=== PATIENT | female | born 1995 | race African-American/Black ===

== ENCOUNTER 2017-05-03 16:05 | Emergency (ER) | payer OTHER ==
[2017-05-05 15:31] LABS: CHLAMYDIA PROBE Negative (Negative); GC PROBE Negative (Negative)
== END 2017-05-03 16:42 | disposition home or self-care (01) ==
LOC: ER 16:05
DX: B37.9 Candidiasis, unspecified (principal); Z87.440 Personal history of urinary (tract) infections
CPT/HCPCS: 87491; 87591; 99284; Q0111

== ENCOUNTER 2018-10-26 23:09 | Emergency (ER) | payer MEDICAID, OTHER ==
[~2018-10-26] VITALS: Ht 170.2 cm; Wt 90.7 kg
[~2018-10-26 23:09] MED LIST: FLUC150T PO
[2018-10-26 23:42] LABS: BILIRUBIN,URINE NEGATIVE (NEG); CLARITY,URINE CLEAR; COLOR,URINE YELLOW; NITRITE,URINE NEGATIVE (NEG); PROTEIN,URINE NEGATIVE (NEG-TRACE)
[2018-10-26 23:47] LABS: BACTERIA,URINE 0 /HPF (0-FEW); RBC,URINE OCC /HPF (0-2); SQUAMOUS EPITHELIAL CELL,UR MOD /LPF; WBC,URINE OCC /HPF (0-4)
[2018-10-26 23:56] LABS: BASO # 0.1 x10^3/uL (0.0-0.2); BASO % 1 % (0-3); EOS # 0.1 x10^3/uL (0.0-0.7); EOS % 2 % (0-3); HEMATOCRIT 34.3 % (36.0-47.0); HEMOGLOBIN 11.1 g/dL (12.0-15.5); LYMPH # 2.9 x10^3/uL (1.0-4.8); LYMPH % 31 % (24-48); MEAN CORPUSCULAR HEMOGLOBIN 27 pg (25-35); MEAN CORPUSCULAR HGB CONC 32 g/dL (31-37); MEAN CORPUSCULAR VOLUME 83 fL (79-100); MONO # 0.6 x10^3/uL (0.0-1.1); MONO % 6 % (0-9); NEUT # 5.8 x10^3/uL (1.8-7.7); NEUT % 61 % (31-73); PLATELET COUNT 347 x10^3/uL (140-400); RED BLOOD COUNT 4.13 x10^6/uL (3.50-5.40); RED CELL DISTRIBUTION WIDTH 15.9 % (11.5-14.5); WHITE BLOOD COUNT 9.5 x10^3/uL (4.0-11.0)
[2018-10-27 00:11] LABS: BARBITURATES NEG (NEG); BENZODIAZEPINES NEG (NEG); CANNABINOIDS NEG (NEG); COCAINE NEG (NEG); METHADONE NEG (NEG); OPIATES NEG (NEG); PHENCYCLIDINE NEG (NEG)
[2018-10-27 00:12] LABS: CALCIUM 9.1 mg/dL (8.5-10.1); CREATININE 0.8 mg/dL (0.6-1.0); GFR 109.6; POTASSIUM 3.9 mmol/L (3.5-5.1)
[2018-10-27 00:12] LABS: AMPHETAMINE/METHAMPHETAMINE NEG (NEG)
[2018-10-27 00:14] LABS: ALBUMIN 3.4 g/dL (3.4-5.0); ALBUMIN/GLOBULIN RATIO 0.9 (1.0-1.7); TOTAL BILIRUBIN 0.1 mg/dL (0.2-1.0); TOTAL PROTEIN 7.4 g/dL (6.4-8.2)
[2018-10-27] MEDS ORDERED: MAGNESIUM CITRATE 296 ML SOLUTION. PO ONE (00:30)
--- NOTE | 2018-10-27 00:54 | RAD ---
OB ultrasound less than 14 weeks to include transabdominal and transvaginal imaging 10/27/2018 CLINICAL HISTORY: First trimester of uncertain dates. Vaginal bleeding. TECHNIQUE: Using the distended urinary bladder as a sonographic window, a real-time ultrasound examination of the pelvis was performed. Additionally in an attempt to better evaluate the uterus and adnexa, a transvaginal ultrasound study was performed. Multiple images were obtained. FINDINGS: Comparison study is dated 10/23/2018. The uterus is within normal limits in size. It measures 10.2 x 7.4 x 5.8 cm in longitudinal, transverse, and AP dimensions. The endometrial echo complex is heterogeneous. It measures 1.6 cm in thickness. Fluid is seen within the endometrial canal within the cervical canal. No gestational sac is seen within the uterus. No focal abnormality of the uterus is seen. Both ovaries are within normal limits in size and echogenicity. The right ovary measures 2.7 x 1.9 x 1.8 cm in size. Left ovary measures 2.5 x 2.4 x 1.7 cm in size. No adnexal mass is seen. No free fluid is noted. The ultrasound findings have not significantly changed. IMPRESSION: No IUP is seen. The above ultrasound findings could be seen with a very early IUP, missed spontaneous or possibly due to an occult ectopic . Clinical correlation and correlation with the patient's serial beta hCG levels is recommended. Electronically signed by: Julian Pineda MD (10/27/2018 12:51 AM) [facility]
[2018-10-27 01:00] VITALS: BP 98/53
--- NOTE | 2018-10-27 01:36 | PHYS DOC ---
Past Medical History Past Medical History: UTI Past Surgical History: No Surgical History Alcohol Use: None Drug Use: None Adult General Chief Complaint Chief Complaint: VAGINAL BLEEDING HPI HPI Patient is a 23 year old female 2 para 1 currently approximately 6 weeks presenting to the ED today for vaginal bleeding in that began 3 weeks ago and has been going on slowly since then. She states she was seen at [facility] on Tuesday and her beta hCG was 5000 and was informed she is having a miscarriage. Denies any abdominal pain, denies any back pain, denies any nausea or vomiting. Review of Systems Review of Systems Constitutional: Denies fever or chills [] Eyes: Denies change in visual acuity, redness, or eye pain [] HENT: Denies nasal congestion or sore throat [] Respiratory: Denies cough or shortness of breath [] Cardiovascular: No additional information not addressed in HPI [] GI: Reports vaginal bleeding in . Denies abdominal pain, nausea, vomiting, bloody stools or diarrhea [] : Denies dysuria or hematuria [] Musculoskeletal: Denies back pain or joint pain [] Integument: Denies rash or skin lesions [] Neurologic: Denies headache, focal weakness or sensory changes [] All other systems were reviewed and found to be within normal limits, except as documented in this note. Current Medications Current Medications Current Medications Medications (Trade) Dose Ordered Sig/Serafin Start Time Stop Time Status Last Admin Dose Admin Magnesium Citrate (Citroma) 296 ml 1X ONCE 10/27/18 00:30 10/27/18 00:31 DC 10/27/18 00:36 296 ML Allergies Allergies Allergies Coded Allergies Type Severity Reaction Last Updated Verified No Known Drug Allergies 01/27/16 No Physical Exam Physical Exam Constitutional: Well developed, well nourished, no acute distress, non-toxic appearance. [] HENT: Normocephalic, atraumatic, bilateral external ears normal, oropharynx moist, no oral exudates, nose normal. [] Eyes: PERRLA, EOMI, conjunctiva normal, no discharge. [] Neck: Normal range of motion, no tenderness, supple, no stridor. [] Cardiovascular:Heart rate regular rhythm, no murmur [] Lungs & Thorax: Bilateral breath sounds clear to auscultation [] Abdomen: Bowel sounds normal, soft, no tenderness, no masses, no pulsatile masses. [] Pelvic exam External pelvic is normal, cervix is visualized, small amount of blood in the vaginal vault, no CMT, no adnexal tenderness. Skin: Warm, dry, no erythema, no rash. [] Back: No tenderness, no CVA tenderness. [] Extremities: No tenderness, no cyanosis, no clubbing, ROM intact, no edema. [] Neurologic: Alert and oriented X 3, normal motor function, normal sensory function, no focal deficits noted. [] Psychologic: Affect normal, judgement normal, mood normal. [] Current Patient Data Vital Signs Vital Signs Date Time Temp Pulse Resp B/P (MAP) Pulse Ox O2 Delivery O2 Flow Rate FiO2 10/27/18 01:00 104 22 98/53 (68) 98 Room Air 10/26/18 23:34 98.8 98.8 Lab Values Laboratory Tests Test 10/26/18 23:20 10/26/18 23:38 10/26/18 23:47 Urine Collection Type Unknown Urine Color Yellow Urine Clarity Clear Urine pH 8.0 Urine Specific [place] 1.020 Urine Protein Negative mg/dL (NEG-TRACE) Urine Glucose (UA) Negative mg/dL (NEG) Urine Ketones (Stick) Negative mg/dL (NEG) Urine Blood Negative (NEG) Urine Nitrite Negative (NEG) Urine Bilirubin Negative (NEG) Urine Urobilinogen Dipstick 1.0 mg/dL (0.2 mg/dL) Urine Leukocyte Esterase Negative (NEG) Urine RBC Occ /HPF (0-2) Urine WBC Occ /HPF (0-4) Urine Squamous Epithelial Cells Mod /LPF Urine Bacteria 0 /HPF (0-FEW) Urine Mucus Mod /LPF Urine Opiates Screen Neg (NEG) Urine Methadone Screen Neg (NEG) Urine Barbiturates Neg (NEG) Urine Phencyclidine Screen Neg (NEG) Urine Amphetamine/Methamphetamine Neg (NEG) Urine Benzodiazepines Screen Neg (NEG) Urine Cocaine Screen Neg (NEG) Urine Cannabinoids Screen Neg (NEG) Urine Ethyl Alcohol Neg (NEG) POC Urine HCG, Qualitative Hcg positive (Negative) White Blood Count 9.5 x10^3/uL (4.0-11.0) Red Blood Count 4.13 x10^6/uL (3.50-5.40) Hemoglobin 11.1 g/dL (12.0-15.5) L Hematocrit 34.3 % (36.0-47.0) L Mean Corpuscular Volume 83 fL (79-100) Mean Corpuscular Hemoglobin 27 pg (25-35) Mean Corpuscular Hemoglobin Concent 32 g/dL (31-37) Red Cell Distribution Width 15.9 % (11.5-14.5) H Platelet Count 347 x10^3/uL (140-400) Neutrophils (%) (Auto) 61 % (31-73) Lymphocytes (%) (Auto) 31 % (24-48) Monocytes (%) (Auto) 6 % (0-9) Eosinophils (%) (Auto) 2 % (0-3) Basophils (%) (Auto) 1 % (0-3) Neutrophils # (Auto) 5.8 x10^3/uL (1.8-7.7) Lymphocytes # (Auto) 2.9 x10^3/uL (1.0-4.8) Monocytes # (Auto) 0.6 x10^3/uL (0.0-1.1) Eosinophils # (Auto) 0.1 x10^3/uL (0.0-0.7) Basophils # (Auto) 0.1 x10^3/uL (0.0-0.2) Maternal Serum HCG Beta Subunit 2728 mIU/mL (0-5) H Sodium Level 138 mmol/L (136-145) Potassium Level 3.9 mmol/L (3.5-5.1) Chloride Level 103 mmol/L (98-107) Carbon Dioxide Level 27 mmol/L (21-32) Anion Gap 8 (6-14) Blood Urea Nitrogen 10 mg/dL (7-20) Creatinine 0.8 mg/dL (0.6-1.0) Estimated GFR (Cockcroft-Gault) 109.6 BUN/Creatinine Ratio 13 (6-20) Glucose Level 102 mg/dL (70-99) H Calcium Level 9.1 mg/dL (8.5-10.1) Total Bilirubin 0.1 mg/dL (0.2-1.0) L Aspartate Amino Transferase (AST) 17 U/L (15-37) Alanine Aminotransferase (ALT) 21 U/L (14-59) Alkaline Phosphatase 110 U/L (46-116) Total Protein 7.4 g/dL (6.4-8.2) Albumin 3.4 g/dL (3.4-5.0) Albumin/Globulin Ratio 0.9 (1.0-1.7) L Ethyl Alcohol Level < 10 mg/dL (0-10) Laboratory Tests 10/26/18 23:47 Laboratory Tests 10/26/18 23:47 Microbiology 10/26/18 Wet Prep - Final, Complete EKG EKG [] Radiology/Procedures Radiology/Procedures []PROCEDURE: OB <14 WKS W/TV OB ultrasound less than 14 weeks to include transabdominal and transvaginal imaging 10/27/2018 CLINICAL HISTORY: First trimester of uncertain dates. Vaginal bleeding. TECHNIQUE: Using the distended urinary bladder as a sonographic window, a real-time ultrasound examination of the pelvis was performed. Additionally in an attempt to better evaluate the uterus and adnexa, a transvaginal ultrasound study was performed. Multiple images were obtained. FINDINGS: Comparison study is dated 10/23/2018. The uterus is within normal limits in size. It measures 10.2 x 7.4 x 5.8 cm in longitudinal, transverse, and AP dimensions. The endometrial echo complex is heterogeneous. It measures 1.6 cm in thickness. Fluid is seen within the endometrial canal within the cervical canal. No gestational sac is seen within the uterus. No focal abnormality of the uterus is seen. Both ovaries are within normal limits in size and echogenicity. The right ovary measures 2.7 x 1.9 x 1.8 cm in size. Left ovary measures 2.5 x 2.4 x 1.7 cm in size. No adnexal mass is seen. No free fluid is noted. The ultrasound findings have not significantly changed. IMPRESSION: No IUP is seen. The above ultrasound findings could be seen with a very early IUP, missed spontaneous or possibly due to an occult ectopic . Clinical correlation and correlation with the patient's serial beta hCG levels is recommended. Electronically signed by: Julian Weiner MD (10/27/2018 12:51 AM) [facility] DICTATED and SIGNED BY: JULIAN WEINER MD DATE: 10/27/18 0051 Course & Med Decision Making Course & Med Decision Making Pertinent Labs and Imaging studies reviewed. (See chart for details) This is a 23-year-old female patient 2 para 1 presenting to the ED today complaining of vaginal bleeding in that began 3 weeks ago. Patient was seen at [facility] on Tuesday which is roughly 6 days ago and was i nformed she is having a miscarriage. Her beta hCG at that point was 5000. Beta hCG today is 2728, hemoglobin 11.1, hematocrit 34.3. Urine analysis is negative for infection, CMP-no acute findings. Wet prep negative for infection. Blood group O+ OB ultrasound-no IUP is seen ultrasound findings could be seen with a very early IUP, missed spontaneous or possibly due to an occult ectopic pre gnancy. Patient was informed she is likely having a miscarriage. She was discharged to home, pelvic rest recommended. Instructed to follow-up with her AUTOMATION/CONTROLS MANAGER for serial beta hCGs. Provided return precautions and discharged in stable condition. Dragon Disclaimer Dragon Disclaimer This electronic medical record was generated, in whole or in part, using a voice recognition dictation system. Departure Departure Impression: Primary Impression: Miscarriage Disposition: HOME, SELF-CARE Condition: STABLE Referrals: NO PCP (PCP) KAVIN TEJEDA MD follow up in 1 week Patient Instructions: Miscarriage, [id number] Additional Instructions: You were evaluated in the emergency room for vaginal bleeding in . You are having a miscarriage. Please follow-up with your AUTOMATION/CONTROLS MANAGER in 2 days for beta hcg/blood work to check a levels. Maintain bedrest this includes no se xual intercourse, no strenuous or heavy activities until seen by the AUTOMATION/CONTROLS MANAGER. Come back to the ED at any point symptoms worsen. COLLIN ALEGRE LEATHER COLORER Oct 27, 2018 01:36
== END 2018-10-27 01:44 | disposition home or self-care (01) ==
LOC: ER 23:09
DX: O03.9 Complete or unspecified spontaneous abortion without complication (principal); Z3A.01 Less than 8 weeks gestation of pregnancy; Z87.440 Personal history of urinary (tract) infections
CPT/HCPCS: 36415; 76801; 76817; 80053; 80307; 81001; 81025; 84702; 85025; 86850; 86900; 86901; 99285; G0480; Q0111